=== PATIENT | female | born 1965 | race Hispanic/Latino ===

== ENCOUNTER 2018-06-04 21:30 | Emergency (ER) | payer BC, MEDICARE ==
[2018-06-04 21:31] VITALS: BMI 18.0
--- NOTE | 2018-06-04 21:54 | ED PDOC ---
Arrival/HPI - General Chief Complaint: Trauma Time Seen by Provider: 06/04/18 21:41 Historian: Patient - History of Present Illness Narrative History of Present Illness (Text): 52 y/o F w/ pmhx of a shoulder replacement 3 months ago presents to the emergency department s/p fall with a cut to her right lip from supposedly around 1 hour ago. Patient reports she tripped and fell, noting a canine upper tooth is also chipped. She reports a splinter to the palmar surface of her left hand. Patient denies any fever, chills, shortness of breath, chest pain, diarrhea, nausea, vomiting, urinary symptoms, back pain, neck pain, headache, dizziness, or any other complaints. Time/Duration: 1 hour Symptom Onset: Sudden Symptom Course: Unchanged Activities at Onset: Light Context: Home Past Medical History - Provider Review Nursing Documentation Reviewed: Yes - Infectious Disease Hx of Infectious Diseases: None - Tetanus Immunization Tetanus Immunization: Unknown - Cardiac Hx Hypertension: Yes - Pulmonary Hx Chronic Obstructive Pulmonary Disease (COPD): Yes - Hematological/Oncological Hx Cancer: Yes (LUNG) - Psychiatric Hx Anxiety: Yes Hx Depression: Yes Hx Emotional Abuse: No Hx Physical Abuse: No Hx Substance Use: No - Surgical History Other/Comment: LOBECTOMY. R shoulder surgery - Anesthesia Hx Anesthesia: Yes Hx Anesthesia Reactions: No - Suicidal Assessment Feels Threatened In Home Enviroment: No Family/Social History - Physician Review Nursing Documentation Reviewed: Yes Family/Social History: Unknown Family HX Smoking Status: Former Smoker Hx Alcohol Use: Yes Frequency of alcohol use: Socially Hx Substance Use: No Allergies/Home Meds Allergies/Adverse Reactions: Allergies codeine Adverse Reaction (Verified 06/04/18 21:45) NAUSEA Home Medications: Home Meds Medication Instructions Recorded Confirmed ALPRAZolam [Xanax] 0.25 mg PO BID 06/04/18 06/04/18 RX: Gabapentin [Neurontin] 300 mg PO HS 06/04/18 06/04/18 Ranitidine HCl [Zantac 75] 75 mg PO BID 06/04/18 06/04/18 Venlafaxine [Effexor-XR] 75 mg PO DAILY 06/04/18 06/04/18 Review of Systems - Physician Review All systems were reviewed & negative as marked: Yes - Review of Systems Constitutional: absent: Fevers, Night Sweats Respiratory: absent: SOB Cardiovascular: absent: Chest Pain Gastrointestinal: absent: Diarrhea, Nausea, Vomiting Genitourinary Female: absent: Urine Output Changes Musculoskeletal: absent: Back Pain, Neck Pain Skin: Other (+Cut to right lip and splinter to left hand) Neurological: absent: Headache, Dizziness Physical Exam Vital Signs Reviewed: Yes Vital Signs Temp Pulse Resp BP Pulse Ox 06/04/18 21:45 97.8 F 73 17 111/76 99 Temperature: Afebrile Blood Pressure: Normal Pulse: Regular Respiratory Rate: Normal Appearance: Positive for: Well-Appearing, Non-Toxic, Comfortable Pain Distress: None Mental Status: Positive for: Alert and Oriented X 3 - Systems Exam Head: Present: Normocephalic, Other (No Urias sign or post-auricular ecchymoses) Pupils: Present: PERRL Extroacular Muscles: Present: EOMI Conjunctiva: Present: Normal Mouth: Present: Moist Mucous Membranes Neck: Present: Normal Range of Motion Respiratory/Chest: Present: Clear to Auscultation, Good Air Exchange. No: Respiratory Distress, Accessory Muscle Use Cardiovascular: Present: Regular Rate and Rhythm, Normal S1, S2. No: Murmurs Abdomen: No: Tenderness, Distention, Peritoneal Signs Back: Present: Normal Inspection Upper Extremity: Present: Normal Inspection. No: Cyanosis, Edema Lower Extremity: Present: Other (+splinter noted to left hand) Neurological: Present: GCS=15, CN II-XII Intact, Speech Normal Skin: Present: Laceration (0.5 cm linear laceration under right upper lip), Abrasion (+contusion with abrasion to philtrum of upper right lip), Other (+ecchymosis noted to right upper lip) Psychiatric: Present: Alert, Oriented x 3, Normal Insight, Normal Concentration Medical Decision Making ED Course and Treatment: 06/04/18 21:54 Impression 52 y/o F presenting s/p fall with a cut to left lip. Differential Diagnoses Include But Are Not Limited To: Plan --Wound repair --Boostrix vaccine injection --Reassess & disposition Progress Notes 06/04/18 22:24 PROCEDURE: LACERATION REPAIR Performed by the emergency provider Location: Left upper lip Length: 0.5 cm Description:Linear superficial laceration with clean wound edges with no foreign bodies. Distal CMS: Normal. No deficits. Neurovascularly intact. Anesthesia: Lidocaine 1% Preparation: The wound was cleaned with NS and Bet[place]. The area was prepped and draped in the usual sterile fashion. Exploration: The wound was explored and no foreign bodies were found. Procedure: The wound was closed with 5.0 chromic gut sutures. There was good appropriate approximation. In total, 3 sutures were used. Post-Procedure: Good closure and hemostasis. The patient tolerated the procedure well and there were no complications. CSM remains intact. Post procedure dressing applied. Note: Suture completed. Patient was advised to follow up with plastic surgeon. She is stable discharge. Disposition/Present on Arrival - Present on Arrival Any Indicators Present on Arrival: No History of DVT/PE: No History of Uncontrolled Diabetes: No Urinary Catheter: No History of Decub. Ulcer: No History Surgical Site Infection Following: None - Disposition Have Diagnosis and Disposition been Completed?: Yes Diagnosis: Fall, Contusion, lip, Laceration of lip Disposition: HOME/ ROUTINE Disposition Time: 22:35 Patient Plan: Discharge Condition: IMPROVED Discharge Instructions (ExitCare): Contusion (DC), Preventing Falls Additional Instructions: All medical record entries made by the Scribe were at my direction and personally dictated by me. I have reviewed the chart and agree that the record accurately reflects my personal performance of the history, physical exam, medical decision making, and the department course for this patient. I have also personally directed, reviewed, and agree with the discharge instructions and disposition. Marion follow up with your plastic surgeon in 5-10 days Referrals: Audi Mccauley MD [Staff Provider] - Follow up with primary Forms: Converser (Lithuanian)
[2018-06-04 22:07] VITALS: TEMP 97.8
[2018-06-04] MEDS ORDERED: TDAP Vaccine 0.5 mL Syr IM ONE (22:25)
[2018-06-04 22:40] VITALS: BP 118/73; PULSE 72; RESP 18; O2SAT 100
== END 2018-06-04 22:39 | disposition home or self-care (01) ==
LOC: ED 21:30
DX: S01.511A Laceration without foreign body of lip, initial encounter (principal); W01.0XXA Fall on same level from slipping, tripping and stumbling without subsequent striking against object, initial encounter; Y92.9 Unspecified place or not applicable; Z23 Encounter for immunization